=== PATIENT | female | born 1985 | race Caucasian/White ===

== ENCOUNTER 2020-10-11 16:15 | Emergency (ER) | payer OTHER ==
[~2020-10-11] VITALS: Ht 165.1 cm; Wt 72.0 kg
--- NOTE | 2020-10-11 17:21 | PHYS DOC ---
Past History Past Medical History: Asthma, Hyperthyroid Alcohol Use: None General Adult EDM: Chief Complaint: ABDOMINAL PAIN IN HPI: HPI: Patient is a 35-year-old female who presents with left lower abdominal pain. Patient is 19 weeks . G6,P3. Patient is reporting the pain as a constant, dull for 6 days. Patient denies vaginal bleeding. Denies frequency, burning with urination. Denies discharge, odor. Patient's been taking Tylenol for pain with no relief. Denies all other health history. Review of Systems: Review of Systems: Constitutional: Denies fever or chills Eyes: Denies change in visual acuity HENT: Denies nasal congestion or sore throat Respiratory: Denies cough or shortness of breath Cardiovascular: Denies chest pain or edema GI: Reports left lower abdominal pain, denies nausea, vomiting, bloody stools or diarrhea : Denies dysuria Musculoskeletal: Denies back pain or joint pain Integument: Denies rash Neurologic: Denies headache, focal weakness or sensory changes Endocrine: Denies polyuria or polydipsia Lymphatic: Denies swollen glands Psychiatric: Denies depression or anxiety Allergies: Allergies: Allergies Coded Allergies Type Severity Reaction Last Updated Verified ciprofloxacin Allergy Unknown 10/11/20 Yes omeprazole Allergy Unknown 10/11/20 Yes Uncoded Allergies Type Severity Reaction Last Updated Verified SULFA Allergy Unknown 10/11/20 Physical Exam: PE: Constitutional: Well developed, well nourished, no acute distress, non-toxic appearance. [] HENT: Normocephalic, atraumatic, bilateral external ears normal, oropharynx moist, no oral exudates, nose normal. [] Eyes: PERRLA, EOMI, conjunctiva normal, no discharge. [] Neck: Normal range of motion, no tenderness, supple, no stridor. [] Cardiovascular:Heart rate regular rhythm, no murmur [] Lungs & Thorax: Bilateral breath sounds clear to auscultation [] Abdomen: Bowel sounds normal, soft, no tenderness, no masses, no pulsatile masses. [] Skin: Warm, dry, no erythema, no rash. [] Back: No tenderness, no CVA tenderness. [] Extremities: No tenderness, no cyanosis, no clubbing, ROM intact, no edema. [] Neurologic: Alert and oriented X 3, normal motor function, normal sensory function, no focal deficits noted. [] Psychologic: Affect normal, judgement normal, mood normal. [] Current Patient Data: Vital Signs: Vital Signs Date Time Temp Pulse Resp B/P (MAP) Pulse Ox O2 Delivery O2 Flow Rate FiO2 10/11/20 16:23 98.2 97 16 119/69 (86) 100 Room Air EKG: EKG: [] Radiology/Procedures: Radiology/Procedures: []Obstetric ultrasound limited: Reason for examination: Right lower quadrant abdominal pain. Cervix is normal in length at 3.3 cm and appears to be closed. Single viable intrauterine gestation is present with the fetus in cephalic presentation. Placenta is anterior with no previa or abruption evident. Adequate amniotic fluid is present with amniotic fluid index of 13.7 cm. Cardiac activity is seen in the 4 chambered heart with a rate of 144 bpm. motion is present. Biparietal diameter 4.3 cm corresponding to gestational age of 19 weeks 1 day. Head circumference is 15.7 cm corresponding to gestational age of 18 weeks 4 days. Abdominal circumference is 13.0 cm corresponding to gestational age of 18 weeks 4 days. Femur length is 2.8 cm corresponding to gestational age of 18 weeks 4 days. Head circumference to abdominal circumference ratio is 1.2. weight is estimated at 247 g or approximately 9 ounces. Estimated gestational age is 18 weeks 5 days with estimated date of confinement of 03/09/2021 which is slightly ahead of clinical values. The ovaries in the maternal adnexa were not identified. No free fluid was evident. IMPRESSION: Single viable intrauterine gestation with a mean gestational age estimated at 18 weeks 5 days with estimated date of confinement of 03/09/2021. Electronically signed by: Ella Emmanuel MD (10/11/2020 5:34 PM) [facility] Heart Score: C/O Chest Pain: No Risk Factors: Risk Factors: DM, Current or recent (<one month) smoker, HTN, HLP, family history of CAD, obesity. Risk Scores: Score 0 - 3: 2.5% MACE over next 6 weeks - Discharge Home Score 4 - 6: 20.3% MACE over next 6 weeks - Admit for Clinical Observation Score 7 - 10: 72.7% MACE over next 6 weeks - Early Invasive Strategies Course & Med Decision Making: Course & Med Decision Making Pertinent Labs and Imaging studies reviewed. (See chart for details) [] Limited ultrasound. heart tones 150. US Shows Single viable intrauterine gestation with a mean gestational age estimated at 18 weeks 5 days with estimated date of confinement of 03/09/2021. Labs are unremarkable. UA is negative for infection. Patient is hemodynamically stable. Patient to take Tylenol at home for discomfort. Follow-up with OB. Return to emergency room if pain continues. Dragon Disclaimer: Dragon Disclaimer: This electronic medical record was generated, in whole or in part, using a voice recognition dictation system. Departure Departure: Impression: Primary Impression: Abdominal pain in Qualified Codes: O26.892 - Other specified related conditions, second trimester; R10.9 - Unspecified abdominal pain Disposition: DC HOME SELF CARE/HOMELESS Condition: STABLE Referrals: PCP,NO (PCP) Patient Instructions: Abdominal Pain During , [id number] Additional Instructions: EMERGENCY DEPARTMENT GENERAL DISCHARGE INSTRUCTIONS Thank you for coming to [facility] (ED) today and trusting us with you care. We trust that you had a positivie experience in our Emergency Department. If you wish to speak to the department management, you may call the director at [phone]. YOUR FOLLOW UP INSTRUCTIONS ARE FOLLOWS: 1. Do you have a private Doctor? If you do not have a private doctor, please ask for a resource list of physicians or clinics that may be able to assist you with follow up care. 2. The Emergency Physician has interpreted your x-rays. The X-Ray specialist will also review them. If there is a change in the findings, you will be notified in 48 hours when at all possible. 3. A lab test or culture has been done, your results will be reviewed and you will be notified if you need a change in treatment. ADDITIONAL INSTRUCTIONS AND INFORMATION: 1. Your care today has been supervised by a physician who is specially trained in emergency care. Many problems require more than one evaluation for a complete diagnosis and treatment. We recommend that you schedule your follow up appointment as recommended to ensure complete treatment of you illness or injury. If you are unable to obtain follow up care and continue to have a problem, or if your condition worsens, we recommend that you return to the ED. 2. We are not able to safely determine your condition over the phone nor are we able to give sound medical advice over the phone. For these safety reasons, if you call for medical advice we will ask you to come to the ED for further evaluation. 3. If you have any questions regarding these discharge instructions please call the ED at [phone]. SAFETY INFORMATION: In the interest of safety, wellness, and injury prevention; we encourage you to wear your sealbelt, if you smoke; quite smoking, and we encourage family to use a protective helmet for bicycling and other sporting events that present an increased risk for head injury. IF YOUR SYMPTOMS WORSEN OR NEW SYMPTOMS DEVELOP, OR YOU HAVE CONCERNS ABOUT YOUR CONDITION; OR IF YOUR CONDITION WORSENS WHILE YOU ARE WAITING FOR YOUR FOLLOW UP APPOIN TMENT; EITHER CONTACT YOUR PRIMARY CARE DOCTOR, THE PHYSICIAN WHOSE NAME AND NUMBER YOU WERE GIVEN, OR RETURN TO THE ED IMMEDIATELY. Scripts Amoxicillin (AMOXICILLIN) 500 Mg Capsule 1 CAP PO BID for infection for 10 Days, #20 CAP Prov: GRACIE GARCIA APRN 10/11/20 GRACIE GARCIA APRN Oct 11, 2020 17:21
[2020-10-11 17:27] LABS: BILIRUBIN,URINE NEG (NEG); CLARITY,URINE CLEAR; COLOR,URINE YELLOW; GLUCOSE,URINE NEG (NEG); NITRITE,URINE NEG (NEG); UROBILINOGEN,URINE 0.2 mg/dL (0.2 mg/dL)
[2020-10-11 17:28] LABS: BACTERIA,URINE 0 /HPF (0-FEW); RBC,URINE 0 /HPF (0-2); SQUAMOUS EPITHELIAL CELL,UR MOD /LPF; WBC,URINE 0 /HPF (0-4)
--- NOTE | 2020-10-11 17:36 | RAD ---
Obstetric ultrasound limited: Reason for examination: Right lower quadrant abdominal pain. Cervix is normal in length at 3.3 cm and appears to be closed. Single viable intrauterine gestation i s present with the fetus in cephalic presentation. Placenta is anterior with no previa or abruption e vident. Adequate amniotic fluid is present with amniotic fluid index of 13.7 cm. Cardiac activity is seen in the 4 chambered heart with a rate of 144 bpm. motion is present. Biparietal diameter 4.3 cm corresponding to gestational age of 19 weeks 1 day. Head circumference is 15.7 cm corresponding to gestational age of 18 weeks 4 days. Abdominal circumference is 13.0 cm corresponding to gestational age of 18 weeks 4 days. Femur length is 2.8 cm corresponding to gestational age of 18 weeks 4 days. Head circumference to abdominal circumference ratio is 1.2. weight is estimated at 247 g or approximately 9 ounces. Estimated gestational age is 18 weeks 5 days with estimated date of confinement of 03/09/2021 which is slightly ahead of clinical values. The ovaries in the maternal adnexa were not identified. No free fluid was evident. IMPRESSION: Single viable intrauterine gestation with a mean gestational age estimated at 18 weeks 5 days with es timated date of confinement of 03/09/2021. Electronically signed by: Ella Emmanuel MD (10/11/2020 5:34 PM) [facility]
[2020-10-11 17:39] LABS: BASO % 1 % (0-3); EOS # 0.1 x10^3/uL (0.0-0.7); EOS % 1 % (0-3); HEMATOCRIT 29.5 % (36.0-47.0); HEMOGLOBIN 10.1 g/dL (12.0-15.5); LYMPH # 1.3 x10^3/uL (1.0-4.8); LYMPH % 14 % (24-48); MEAN CORPUSCULAR HEMOGLOBIN 32 pg (25-35); MEAN CORPUSCULAR HGB CONC 34 g/dL (31-37); MEAN CORPUSCULAR VOLUME 94 fL (79-100); MONO # 0.5 x10^3/uL (0.0-1.1); MONO % 6 % (0-9); NEUT # 6.9 x10^3uL (1.8-7.7); NEUT % 78 % (31-73); PLATELET COUNT 227 x10^3/uL (140-400); RED BLOOD COUNT 3.14 x10^6/uL (3.50-5.40); RED CELL DISTRIBUTION WIDTH 14.2 % (11.5-14.5); WHITE BLOOD COUNT 8.8 x10^3/uL (4.0-11.0)
[2020-10-11 17:51] LABS: CALCIUM 8.3 mg/dL (8.5-10.1); GFR 62.4; POTASSIUM 3.5 mmol/L (3.5-5.1)
[2020-10-11 17:53] LABS: ALBUMIN 2.7 g/dL (3.4-5.0); ALBUMIN/GLOBULIN RATIO 0.8 (1.0-1.7); TOTAL BILIRUBIN 0.2 mg/dL (0.2-1.0); TOTAL PROTEIN 6.2 g/dL (6.4-8.2)
[2020-10-11] MEDS ORDERED: AMOX500C PO (18:51)
[2020-10-11] MEDS ORDERED: BENZOCAINE ONE 20% MUCOSAL SPRAY. MM (19:00)
[2020-10-11] MEDS ORDERED: AMOXICILLIN 250 MG CAPSULE PO ONE (19:00)
[2020-10-11 19:20] VITALS: BP 105/62
== END 2020-10-11 19:20 | disposition home or self-care (01) ==
LOC: ER 16:15
DX: O26.892 Other specified pregnancy related conditions, second trimester (principal); R10.32 Left lower quadrant pain; O99.512 Diseases of the respiratory system complicating pregnancy, second trimester; J45.909 Unspecified asthma, uncomplicated; Z3A.19 19 weeks gestation of pregnancy; Z88.1 Allergy status to other antibiotic agents; Z88.2 Allergy status to sulfonamides; Z88.8 Allergy status to other drugs, medicaments and biological substances
CPT/HCPCS: 36415; 76815; 80053; 81001; 85025; 86901; 99284-25

== ENCOUNTER 2020-12-07 14:03 | Emergency (ER) | payer OTHER ==
[~2020-12-07] VITALS: Ht 165.1 cm; Wt 95.0 kg
[~2020-12-07 14:03] MED LIST: AMOX500C PO
--- NOTE | 2020-12-07 14:58 | PHYS DOC ---
Past History Past Medical History: Asthma, Hypothyroid Past Surgical History: No Surgical History Alcohol Use: None General Adult EDM: Chief Complaint: LOWER EXTREMITY SWELLING HPI: HPI: 35-year-old female presents with right lower leg swelling. Patient has bad varicose veins at baseline. Her right calf is now more swollen and her left. She has no history of DVT. The patient is 26 weeks . Her mother had a DVT while with one of the patient's siblings. Patient denies shortness of breath. She does not express any complications with the . She has no other concerns at this time. Review of Systems: Review of Systems: Constitutional: Denies fever or chills Eyes: Denies change in visual acuity HENT: Denies nasal congestion or sore throat Respiratory: Denies cough or shortness of breath Cardiovascular: Denies chest pain or edema GI: Denies abdominal pain, nausea, vomiting, bloody stools or diarrhea : Denies dysuria Musculoskeletal: Right lower leg pain and swelling Integument: Denies rash Neurologic: Denies headache, focal weakness or sensory changes Endocrine: Denies polyuria or polydipsia Lymphatic: Denies swollen glands Psychiatric: Denies depression or anxiety Allergies: Allergies: Allergies Coded Allergies Type Severity Reaction Last Updated Verified ciprofloxacin Allergy Unknown 10/11/20 Yes omeprazole Allergy Unknown 10/11/20 Yes Uncoded Allergies Type Severity Reaction Last Updated Verified SULFA Allergy Unknown 10/11/20 Physical Exam: PE: Constitutional: Well developed, well nourished, no acute distress, non-toxic appearance. [] HENT: Normocephalic, atraumatic, bilateral external ears normal, oropharynx moist, no oral exudates, nose normal. [] Eyes: PERRLA, EOMI, conjunctiva normal, no discharge. [] Neck: Normal range of motion, no tenderness, supple, no stridor. [] Cardiovascular:Heart rate regular rhythm, no murmur [] Lungs & Thorax: Bilateral breath sounds clear to auscultation [] Abdomen: Bowel sounds normal, gravid uterus, no tenderness, no masses, no pulsatile masses. [] Skin: Warm, dry, no erythema, no rash. [] Back: No tenderness, no CVA tenderness. [] Extremities: Right calf swollen compared to left. Significant varicose veins in the bilateral lower extremities [] Neurologic: Alert and oriented X 3, normal motor function, normal sensory function, no focal deficits noted. [] Psychologic: Affect normal, judgement normal, mood normal. [] Current Patient Data: Vital Signs: Vital Signs Date Time Temp Pulse Resp B/P (MAP) Pulse Ox O2 Delivery O2 Flow Rate FiO2 12/07/20 14:43 97.9 88 16 127/75 (92) 100 Room Air EKG: EKG: [] Radiology/Procedures: Radiology/Procedures: [] Impressions: EXAMINATION: RIGHT LOWER EXTREMITY - UNILATERAL VENOUS DOPPLER. Technique: Ultrasound evaluation of the right lower extremity was performed from the groin to the upper calf with juarez scale, spectral and color doppler evaluation. Indication: Leg swelling Comparison: None Findings: There is normal venous flow and compressibility of right common femoral vein, femoral vein, popliteal vein, and visualized proximal calf veins. Impression: No evidence for deep vein thrombosis of right lower extremity from the level of the calf veins to the groins. Electronically signed by: Myke Duffy MD (12/07/2020 3:13 PM) [id number] DICTATED AND SIGNED BY: MYKE DUFFY MD DATE: 12/07/20 1513 CC: BAY SON DO; PCP,NO ~MTH0 0 Heart Score: C/O Chest Pain: N/A Risk Factors: Risk Factors: DM, Current or recent (<one month) smoker, HTN, HLP, family history of CAD, obesity. Risk Scores: Score 0 - 3: 2.5% MACE over next 6 weeks - Discharge Home Score 4 - 6: 20.3% MACE over next 6 weeks - Admit for Clinical Observation Score 7 - 10: 72.7% MACE over next 6 weeks - Early Invasive Strategies Course & Med Decision Making: Course & Med Decision Making Pertinent Labs and Imaging studies reviewed. (See chart for details) The patient's ultrasound is negative for DVT. This is likely pain associated with her varicose veins. She is stable for discharge at this time. [] Dragon Disclaimer: Apolinar Disclaimer: This electronic medical record was generated, in whole or in part, using a voice recognition dictation system. Departure Departure: Impression: Primary Impression: Swelling of right lower extremity Additional Impression: Varicose veins of both lower extremities Qualified Codes: I83.813 - Varicose veins of bilateral lower extremities with pain Disposition: HOME / SELF CARE / HOMELESS Condition: STABLE Referrals: PCP,LUIS DANIEL (PCP) Patient Instructions: Varicose Veins BAY SON DO December 07, 2020 14:58
--- NOTE | 2020-12-07 15:16 | RAD ---
EXAMINATION: RIGHT LOWER EXTREMITY - UNILATERAL VENOUS DOPPLER. Technique: Ultrasound evaluation of the right lower extremity was performed from the groin to the upp er calf with juarez scale, spectral and color doppler evaluation. Indication: Leg swelling Comparison: None Findings: There is normal venous flow and compressibility of right common femoral vein, femoral vein, popliteal vein, and visualized proximal calf veins. Impression: No evidence for deep vein thrombosis of right lower extremity from the level of the calf veins to the groins. Electronically signed by: Myke Duffy MD (12/07/2020 3:13 PM) [id number]
[2020-12-07 16:05] VITALS: BP 124/74
== END 2020-12-07 16:30 | disposition home or self-care (01) ==
LOC: ER 14:03
DX: O26.892 Other specified pregnancy related conditions, second trimester (principal); I83.813 Varicose veins of bilateral lower extremities with pain; Z3A.26 26 weeks gestation of pregnancy
CPT/HCPCS: 93971; 99284-25